=== PATIENT | male | born 1970 | race Caucasian/White ===

== ENCOUNTER 2019-09-17 08:12 | Outpatient (REF) | payer BC, SELFPAY ==
[2019-09-17 21:14] LABS: Anion Gap 9.6 mmol/L (3-11); BUN 16 mg/dL (7-18); CO2 28.4 mmol/L (21.0-32.0); CREATININE 1.11 mg/dL (0.70-1.30); Calcium 8.9 mg/dL (8.5-10.1); Chloride 104 mmol/L (98-107); Glucose 117 mg/dL (74-106); Potassium 4.9 mmol/L (3.5-5.1); Sodium 142 mmol/L (136-145)
[2019-09-17 21:34] LABS: Calculated LDL 153 mg/dL (<100); Cholesterol 233 mg/dL (<200); HDL Cholesterol 45 mg/dL (40-60); Triglyceride 178 mg/dL (<150)
== END 2019-09-17 08:32 ==
LOC: NCHCN 08:12
PROVIDERS: PCP Internal Medicine; Visit Provider Internal Medicine
DX: R03.0 Elevated blood-pressure reading, without diagnosis of hypertension (principal); E78.5 Hyperlipidemia, unspecified; R73.03 Prediabetes
CPT/HCPCS: 80048; 80061

== ENCOUNTER 2020-10-28 11:57 | Outpatient (REF) | payer BC, SELFPAY ==
[2020-10-28 14:21] LABS: ALT 45 U/L (16-63); AST 21 U/L (15-37); Alkaline Phosphatase 43 U/L (46-116); Anion Gap 7.5 mmol/L (3-11); BUN 14 mg/dL (7-18); Bilirubin, Total 0.3 mg/dL (0.2-1.0); CO2 28.5 mmol/L (21.0-32.0); CREATININE 1.1 mg/dL (0.70-1.30); Calcium 8.9 mg/dL (8.5-10.1); Calculated LDL 130 mg/dL (<100); Chloride 108 mmol/L (98-107); Cholesterol 192 mg/dL (<200); Glucose 118 mg/dL (74-106); HDL Cholesterol 43 mg/dL (40-60); Potassium 5.1 mmol/L (3.5-5.1); Sodium 144 mmol/L (136-145); Total Protein 7.2 g/dL (6.4-8.2); Triglyceride 96 mg/dL (<150)
[2020-10-28 14:26] LABS: Hemoglobin A1C 5.9 % (<5.7)
== END 2020-10-28 11:58 | disposition home or self-care (01) ==
LOC: NCHCN 11:57
PROVIDERS: PCP Internal Medicine; Visit Provider Internal Medicine
DX: R03.0 Elevated blood-pressure reading, without diagnosis of hypertension (principal); R73.03 Prediabetes; E78.5 Hyperlipidemia, unspecified
CPT/HCPCS: 80053; 80061; 83036

== ENCOUNTER 2021-10-06 14:48 | Outpatient (REF) | payer BC, SELFPAY ==
[2021-10-06 17:28] LABS: Hemoglobin A1C 6.1 % (<5.7)
[2021-10-06 17:41] LABS: ALT 31 U/L (16-63); AST 14 U/L (15-37); Albumin 4.2 g/dL (3.4-5.0); Alkaline Phosphatase 41 U/L (46-116); BUN 15 mg/dL (7-18); Bilirubin, Total 0.4 mg/dL (0.2-1.0); Calcium 8.8 mg/dL (8.5-10.1); Calculated LDL 125 mg/dL (<100); Chloride 104 mmol/L (98-107); Cholesterol 198 mg/dL (<200); Glucose 108 mg/dL (74-106); HDL Cholesterol 45 mg/dL (40-60); Potassium 4.7 mmol/L (3.5-5.1); Sodium 141 mmol/L (136-145); Total Protein 7.4 g/dL (6.4-8.2); Triglyceride 144 mg/dL (<150)
== END 2021-10-06 14:49 | disposition home or self-care (01) ==
LOC: NCHCN 14:48
PROVIDERS: PCP Internal Medicine; Visit Provider Internal Medicine
DX: Z00.00 Encounter for general adult medical examination without abnormal findings (principal); R73.03 Prediabetes; R03.0 Elevated blood-pressure reading, without diagnosis of hypertension; E78.5 Hyperlipidemia, unspecified
CPT/HCPCS: 80053; 80061; 83036

== ENCOUNTER 2022-10-18 18:52 | Outpatient (REF) | payer SELFPAY ==
--- OUTSIDE RECORDS SUMMARY | 2022-10-18 19:00 | XMS_ITS | CCD ---
Author Name Unknown Address [address] [place] [address] [phone] Organization Unknown Address [address], [place] [id number] Care Team Providers Care Receiving Tank Operator Name Role Phone JNAAY BRAGA Attending Physician [phone] JANAY BRAGA Rounding (Secondary) Physic raymond [phone] Vital Signs Unknown or Not Available. Allergies Allergy Code Allergy Type Reaction Status PCN (PENICILLIN) {Clinical monitoring unavailable} 0 Drug allergy UNKNOWN Active SHELLFISH {Clinical monitoring unavailable} 0 Omar g allergy SWELLING Active Procedures Unknown or Not Available. History of Immunizations Unknown or Not Available. Problems Unknown or Not Available. Results Unknown or Not Available. Active Medications Medication Code Dose Units Frequency Route Modificatio n Start Date/Time PATIENT OR PATIENT'S FAMILY DENIES 0 1 DAILY ORAL 09/23/2018 23:24 Prescription Detail TAKE 1 ORAL DAILY Medications Administered During Visit Unknown or Not Available. Encounters Encounter Diagnosis Diagnosis Code Start Date Calcific tendinitis of right shoulder [id number] 04/12/2022 Social History Smoking Status Code Start Date End Date Never smoker [id number] Patient Decision Aids Unknown or Not Available. Discharge Instructions You were admitted to [facility] on 04/12/2022 07:42 with a principal diagnosis of Calcific tendinitis of right shoulder You were discharged from [facility] on 04/12/2022 00:00 Should you have any questions prior to discharge, please contact a member of your healthcare team. If you have left the hospital and have any questions, please contact your primary care physician. Chief Complaint and Reason For Visit Unknown or Not Available. Function Status Unknown or Not Available. Plan of Care Unknown or Not Available. Referral/Transition of Care Unknown or Not Available.
--- OUTSIDE RECORDS SUMMARY | 2022-10-18 19:00 | XMS_ITS | CCD ---
Author Name Unknown Address [address] [place] [address] [id number] Organization Unknown Address [address] [place] [address] [phone] Care Team Providers Care Passenger Solicitor Name Role Phone DAVID AVILES Attending Physician [phone] Vital Signs Unknown or Not Available. Allergies Allergy Code Allergy Type Reaction Status PCN (PENICILLIN) {Clinical monitoring unavailable} 0 Drug allergy UNKNOWN Active SHELLFISH {Clinical monitoring unavailable} 0 Omar g allergy SWELLING Active Procedures Unknown or Not Available. History of Immunizations Unknown or Not Available. Problems Unknown or Not Available. Results [facility] - [place] ect Date/Time: 07/11/2021 11:15 Test Name Code Test Result Test Units Test Ref Rang e Tier- PRE-OP N/A SARS COV2 RNA: 71290-0 NEGATIVE N/A REFERENCE RANGE: NEGAT Active Medications Medication Code Dose Units Frequency Route Modificatio n Start Date/Time PATIENT OR PATIENT'S FAMILY DENIES 0 1 DAILY ORAL 09/23/2018 23:24 Prescription Detail TAKE 1 ORAL DAILY Medications Administered During Visit Unknown or Not Available. Encounters Encounter Diagnosis Diagnosis Code Start Date Pre-surgery testing [id number] 07/11/2021 Social History Smoking Status Code Start Date End Date Never smoker [id number] Patient Decision Aids Unknown or Not Available. Discharge Instructions You were admitted to [facility] on 07/11/2021 21:05 with a principal diagnosis of Encounter for preprocedural laboratory examination You had the following tests done:LISAJANIE BURNS FEDERICOFATUMAX* You were discharged from [facility] on 07/11/2021 21:05 Should you have any questions prior to [...]
[2022-10-18 19:59] LABS: Hemoglobin A1C 5.8 % (<5.7)
[2022-10-18 20:11] LABS: Anion Gap 7.1 mmol/L (3-11); BUN 16 mg/dL (7-18); CO2 27.9 mmol/L (21.0-32.0); CREATININE 1.1 mg/dL (0.70-1.30); Calcium 8.8 mg/dL (8.5-10.1); Calculated LDL 107 mg/dL (<100); Chloride 103 mmol/L (98-107); Cholesterol 170 mg/dL (<200); Estimated GFR 81.28 (mL/min/1.73m2); Glucose 119 mg/dL (74-106); HDL Cholesterol 48 mg/dL (40-60); Potassium 4.3 mmol/L (3.5-5.1); Sodium 138 mmol/L (136-145); Triglyceride 75 mg/dL (<150)
== END 2022-10-18 18:53 | disposition home or self-care (01) ==
LOC: NCHCN 18:52
PROVIDERS: PCP Internal Medicine; Visit Provider Internal Medicine
DX: R73.03 Prediabetes (principal); E78.5 Hyperlipidemia, unspecified; R03.0 Elevated blood-pressure reading, without diagnosis of hypertension; Z00.00 Encounter for general adult medical examination without abnormal findings
CPT/HCPCS: 80048; 80061; 83036

== ENCOUNTER 2023-11-07 12:27 | Outpatient (REF) | payer OTHER, SELFPAY ==
[2023-11-07 15:06] LABS: ALT 36 U/L (16-63); AST 20 U/L (15-37); Albumin 4.6 g/dL (3.4-5.0); Alkaline Phosphatase 41 U/L (46-116); Anion Gap 10.5 mmol/L (3-11); BUN 18 mg/dL (7-18); Bilirubin, Total 0.7 mg/dL (0.2-1.0); CO2 27.5 mmol/L (21.0-32.0); CREATININE 1.4 mg/dL (0.70-1.30); Calcium 9.3 mg/dL (8.5-10.1); Calculated LDL 154 mg/dL (<100); Chloride 106 mmol/L (98-107); Cholesterol 232 mg/dL (<200); Estimated GFR 60.47 (mL/min/1.73m2); Glucose 170 mg/dL (74-106); HDL Cholesterol 48 mg/dL (40-60); Potassium 4.8 mmol/L (3.5-5.1); Sodium 144 mmol/L (136-145); Total Protein 7.9 g/dL (6.4-8.2); Triglyceride 154 mg/dL (<150)
== END 2023-11-07 12:28 | disposition home or self-care (01) ==
LOC: NCHCN 12:27
PROVIDERS: PCP Internal Medicine; Visit Provider Internal Medicine
DX: R03.0 Elevated blood-pressure reading, without diagnosis of hypertension (principal); E78.5 Hyperlipidemia, unspecified
CPT/HCPCS: 80053; 80061; 83036

== ENCOUNTER 2023-11-14 15:04 | Outpatient (REF) | payer OTHER, SELFPAY ==
[2023-11-14 22:52] LABS: PSA, Screening 0.3 ng/mL (<=3.5)
== END 2023-11-14 15:05 | disposition home or self-care (01) ==
LOC: NCHCN 15:04
PROVIDERS: PCP Internal Medicine; Visit Provider Internal Medicine
DX: Z00.00 Encounter for general adult medical examination without abnormal findings (principal); Z12.5 Encounter for screening for malignant neoplasm of prostate
CPT/HCPCS: 84153

== ENCOUNTER 2024-11-06 12:55 | Outpatient (REF) | payer OTHER, SELFPAY ==
[2024-11-06 15:27] LABS: ALT 40 U/L (16-63); AST 29 U/L (15-37); Albumin 4.1 g/dL (3.4-5.0); Alkaline Phosphatase 43 U/L (46-116); Anion Gap 6.4 mmol/L (3-11); BUN 14 mg/dL (7-18); Bilirubin, Total 0.7 mg/dL (0.2-1.0); CO2 27.6 mmol/L (21.0-32.0); CREATININE 1.1 mg/dL (0.70-1.30); Calcium 8.8 mg/dL (8.5-10.1); Calculated LDL 131 mg/dL (<100); Chloride 103 mmol/L (98-107); Cholesterol 198 mg/dL (<200); Estimated GFR 80.27 (mL/min/1.73m2); Glucose 121 mg/dL (74-106); HDL Cholesterol 48 mg/dL (>or=40); Potassium 4.8 mmol/L (3.5-5.1); Sodium 137 mmol/L (136-145); Total Protein 7.4 g/dL (6.4-8.2); Triglyceride 98 mg/dL (<150)
[2024-11-06 16:59] LABS: Hemoglobin A1C 6.1 % (<5.7)
== END 2024-11-06 12:56 | disposition home or self-care (01) ==
LOC: NCHCN 12:55
PROVIDERS: PCP Internal Medicine; Visit Provider Internal Medicine
DX: Z00.00 Encounter for general adult medical examination without abnormal findings (principal)
CPT/HCPCS: 80053; 80061; 83036

== ENCOUNTER 2025-06-12 18:34 | Outpatient (REF) | payer OTHER, SELFPAY | END 2025-06-12 18:35 | disposition home or self-care (01) | LOC: NCHCN 18:34 | PROVIDERS: PCP Internal Medicine; Visit Provider Internal Medicine | DX: I10 Essential (primary) hypertension (principal) | CPT/HCPCS: 82043; 82570 ==